=== PATIENT | female | born 1990 | race Caucasian/White ===

== ENCOUNTER 2023-03-31 08:51 | Outpatient (CLI) | payer OTHER | END 2023-03-31 09:13 | disposition home or self-care (01) | LOC: OBS/DEL 08:51 → LDR 08:55 → OBS/DEL 09:13 | PROVIDERS: ATTEND Obstetrics & Gynecology Maternal & Fetal Medicine | DX: O36.8130 Decreased fetal movements, third trimester, not applicable or unspecified (principal); Z3A.39 39 weeks gestation of pregnancy ==